=== PATIENT | female | born 1995 | race Native Hawaiian/Other Pacific Islander ===

== ENCOUNTER → 2017-05-03 | Outpatient (CLI) | payer OTHER ==
[~2017-05-03] MED LIST: CRUTCH4 USE; Cipro500 MG PO; IBUP600 PO; ORTHO TRI-CYCL1 EACH PO; Pyridium100 MG PO
[2017-05-04 11:57] LABS: Source VAGINAL
== END ==
LOC: LAB 11:55
PROVIDERS: Obstetrics & Gynecology
DX: Z01.419 Encounter for gynecological examination (general) (routine) without abnormal findings (principal)
CPT/HCPCS: G0123

== ENCOUNTER 2022-08-08 20:44 | Observation (INO) | payer OTHER ==
[~2022-08-08] VITALS: Ht 175.3 cm; Wt 135.9 kg
== END 2022-08-09 08:47 | disposition home or self-care (01) ==
LOC: OBS 20:44 → BC 20:47 → OBS 23:04 → BC 23:06
PROVIDERS: ADMIT Obstetrics & Gynecology
DX: Z03.71 Encounter for suspected problem with amniotic cavity and membrane ruled out (principal); Z3A.38 38 weeks gestation of pregnancy
CPT/HCPCS: 59025; 81003; 87210; G0378

== ENCOUNTER 2022-08-14 11:15 | Inpatient (IN) | payer OTHER ==
[~2022-08-14] VITALS: Ht 175.3 cm; Wt 133.0 kg
[2022-08-14] VITALS (30 sets, daily range): BP systolic 96–156; BP diastolic 53–95
[2022-08-14] MEDS ORDERED: ONDA4 PO (14:36)
[2022-08-14] MEDS ORDERED: PRENATAL TABLE1 EAC2 PO (14:36)
[2022-08-14 15:30] LABS: BASOPHILS ABSOLUTE AUTO 0.04 K/mm3 (0.00-0.23); BASOPHILS PERCENT AUTO 0 % (0-2); EOSINOPHILS ABSOLUTE AUTO 0.05 K/mm3 (0.00-0.68); EOSINOPHILS PERCENT AUTO 0 % (0-6); Hematocrit 36.5 % (33.0-51.0); IMMATURE GRAN ABSOLUTE AUTO 0.09 K/mm3 (0.00-0.10); IMMATURE GRAN PERCENT AUTO 1 % (0-1); LYMPHOCYTES ABSOLUTE AUTO 1.37 K/mm3 (0.84-5.20); LYMPHOCYTES PERCENT AUTO 7 % (21-46); MONOCYTES ABSOLUTE AUTO 0.95 K/mm3 (0.16-1.47); MONOCYTES PERCENT AUTO 5 % (4-13); Mean Corpuscular HGB 28.6 pg (26.0-34.0); Mean Corpuscular HGB Conc 32.9 g/dL (31.5-36.5); Mean Corpuscular Volume 87 fL (80-100); Mean Platelet Volume 10.3 fL (9.1-12.4); NEUTROPHILS ABSOLUTE AUTO 17.16 K/mm3 (1.96-9.15); NEUTROPHILS PERCENT AUTO 87 % (41-73); Platelet Count 262 K/mm3 (150-400); RDW Coefficient Variation 13.7 % (11.7-14.2); RDW Standard Deviation 42.9 fL (35.1-46.3); Red Blood Cell Count 4.19 M/mm3 (3.80-5.20); White Blood Cell Count 19.66 K/mm3 (4.00-11.30)
[2022-08-15] VITALS (10 sets, daily range): BP systolic 110–182; BP diastolic 56–73
[2022-08-15 05:30] LABS: BASOPHILS ABSOLUTE AUTO 0.03 K/mm3 (0.00-0.23); BASOPHILS PERCENT AUTO 0 % (0-2); EOSINOPHILS ABSOLUTE AUTO 0.02 K/mm3 (0.00-0.68); EOSINOPHILS PERCENT AUTO 0 % (0-6); Hematocrit 31.9 % (33.0-51.0); Hemoglobin 10.9 g/dL (11.5-16.0); IMMATURE GRAN ABSOLUTE AUTO 0.11 K/mm3 (0.00-0.10); IMMATURE GRAN PERCENT AUTO 1 % (0-1); LYMPHOCYTES ABSOLUTE AUTO 1.49 K/mm3 (0.84-5.20); LYMPHOCYTES PERCENT AUTO 8 % (21-46); MONOCYTES PERCENT AUTO 4 % (4-13); Mean Corpuscular HGB 29.5 pg (26.0-34.0); Mean Corpuscular HGB Conc 34.2 g/dL (31.5-36.5); Mean Corpuscular Volume 86 fL (80-100); Mean Platelet Volume 10.4 fL (9.1-12.4); NEUTROPHILS ABSOLUTE AUTO 17.34 K/mm3 (1.96-9.15); NEUTROPHILS PERCENT AUTO 88 % (41-73); Platelet Count 236 K/mm3 (150-400); RDW Coefficient Variation 13.7 % (11.7-14.2); RDW Standard Deviation 42.9 fL (35.1-46.3); Red Blood Cell Count 3.69 M/mm3 (3.80-5.20); White Blood Cell Count 19.79 K/mm3 (4.00-11.30)
--- NOTE | 2022-08-15 20:09 | NUR ---
RN ROUNDED AT START OF SHIFT, PTS ROOM IS DARK, PT IS SIDE LYING IN BED RESTING. NOT DISTURBED BY RN ENTERING ROOM. NB IS IN CRIB REASTING WELL, SWADDLED AND BACK TO SLEEP.
[2022-08-16 00:47] VITALS: BP 117/61
[2022-08-16 07:36] VITALS: BP 116/59
[2022-08-16 12:17] VITALS: BP 113/68
--- NOTE | 2022-08-16 13:40 | NUR ---
LEFT TEXT MESSAGE TO ASK WHEN MAKING ROUNDS AT 1150 PATIENT WANTS TO GO HOME, NO RESPONSE TO TEXT, 1340 CALLED CELL PHONE THE PHONE HAD BUSY SIGNAL 1340 CALLED OFFICE LEFT MESSAGE TO HAVE DR MONTEIRO CALL UNIT WHEN SHE RETURNS FROM LUNCH
[2022-08-16 13:59] VITALS: BP 130/83
== END 2022-08-16 14:15 | disposition home or self-care (01) | DRG 806 ==
LOC: OBS 11:15 → BC 11:15 → OBS 12:53 → BC 19:13
PROVIDERS: ADMIT Obstetrics & Gynecology
PROC: 10E0XZZ Delivery of Products of Conception, External Approach (ICD-10-PCS; principal; 2022-08-15)
PROC: 3E0R3BZ Introduction of Anesthetic Agent into Spinal Canal, Percutaneous Approach (ICD-10-PCS; 2022-08-15)
PROC: 00HU33Z Insertion of Infusion Device into Spinal Canal, Percutaneous Approach (ICD-10-PCS; 2022-08-15)
PROC: 10907ZC Drainage of Amniotic Fluid, Therapeutic from Products of Conception, Via Natural or Artificial Opening (ICD-10-PCS; 2022-08-15)
DX: O77.0 Labor and delivery complicated by meconium in amniotic fluid (principal); O99.324 Drug use complicating childbirth; Z37.0 Single live birth; O99.334 Smoking (tobacco) complicating childbirth; F17.210 Nicotine dependence, cigarettes, uncomplicated; F12.10 Cannabis abuse, uncomplicated; Z3A.39 39 weeks gestation of pregnancy; Z79.899 Other long term (current) drug therapy
CPT/HCPCS: 36415; 51702; 59025; 85025; 86850; 86900; 86901; 90471; 90707; A9270; J1885; J2210; J2405; J2590; J3010; J7120

== ENCOUNTER 2024-08-01 04:55 | Emergency (ER) | payer OTHER ==
[~2024-08-01] VITALS: Ht 175.3 cm; Wt 98.9 kg
[~2024-08-01 04:55] MED LIST changes: +ONDA4 PO; +PRENATAL TABLE1 EAC2 PO
[2024-08-01 05:48] LABS: CORONAVIRUS COVID-19 AG Negative (NEGATIVE); INFLUENZA A AG Negative (NEGATIVE); INFLUENZA B AG Negative (NEGATIVE)
[2024-08-01] MEDS ORDERED: AMOCLA875 PO (07:27)
[2024-08-01 07:35] VITALS: BP 125/83
== END 2024-08-01 07:39 | disposition home or self-care (01) ==
LOC: ER 04:55
PROVIDERS: Emergency Medicine
DX: O99.512 Diseases of the respiratory system complicating pregnancy, second trimester (principal); J32.9 Chronic sinusitis, unspecified; O99.891 Other specified diseases and conditions complicating pregnancy; R05.9 Cough, unspecified; Z3A.15 15 weeks gestation of pregnancy; Z87.891 Personal history of nicotine dependence; Z79.899 Other long term (current) drug therapy
CPT/HCPCS: 71045; 87428-QW; 93005; 93010; 99284-25

== ENCOUNTER 2025-01-11 21:01 | Inpatient (IN) | payer OTHER ==
[2025-01-11] VITALS (9 sets, daily range): BP systolic 91–128; BP diastolic 47–82
[~2025-01-11] VITALS: Ht 172.7 cm; Wt 112.7 kg
[~2025-01-11 21:01] MED LIST changes: +AMOCLA875 PO
[2025-01-11] MEDS ORDERED: ePHEDrine Sulfate 50 MG/ML 1ML Injection XX PRN (21:40)
[2025-01-11] MEDS ORDERED: FentaNYL Citrate 50 MCG/ML 2 ML Injection IV PRN (21:40)
[2025-01-11] MEDS ORDERED: Ondansetron HCl 2 MG / ML 2ML Vial IV PRN (21:40)
[2025-01-11] MEDS ORDERED: Carboprost Tromethamine 250 MCG/ML 1ML Amp IM PRN (21:40)
[2025-01-11] MEDS ORDERED: OXYTOCIN/RINGER'S LACTATE 500 ML IV PRN (21:40)
[2025-01-11] MEDS ORDERED: FentaNYL 2mcg/ml-Bup 0.1% Epd 250 ML EPI PRN (21:40)
[2025-01-11] MEDS ORDERED: Oxytocin 10 Unit / ML Vial IM PRN (21:40)
[2025-01-11] MEDS ORDERED: Tranexamic Acid 100 ML IV SCH (21:40)
[2025-01-11] MEDS ORDERED: Methylergonovine Maleate 0.2MG / ML 1ML Amp IM PRN ×2 (21:40→23:45)
[2025-01-11 21:47] LABS: BASOPHILS ABSOLUTE AUTO 0.05 K/mm3 (0.00-0.23); BASOPHILS PERCENT AUTO 0 % (0-2); EOSINOPHILS ABSOLUTE AUTO 0.18 K/mm3 (0.00-0.68); EOSINOPHILS PERCENT AUTO 1 % (0-6); Hematocrit 33.8 % (33.0-51.0); Hemoglobin 11.5 g/dL (11.5-16.0); IMMATURE GRAN ABSOLUTE AUTO 0.09 K/mm3 (0.00-0.10); IMMATURE GRAN PERCENT AUTO 1 % (0-1); LYMPHOCYTES ABSOLUTE AUTO 1.88 K/mm3 (0.84-5.20); LYMPHOCYTES PERCENT AUTO 10 % (21-46); MONOCYTES ABSOLUTE AUTO 1.35 K/mm3 (0.16-1.47); MONOCYTES PERCENT AUTO 7 % (4-13); Mean Corpuscular HGB Conc 34.0 g/dL (31.5-36.5); Mean Corpuscular Volume 85 fL (80-100); NEUTROPHILS ABSOLUTE AUTO 16.00 K/mm3 (1.96-9.15); NEUTROPHILS PERCENT AUTO 82 % (41-73); NRBC ABSOLUTE 0.00 K/mm3 (0.00-0.02); NRBC Auto 0.0 /100 WBC (0.0-0.2); Platelet Count 230 K/mm3 (150-400); RDW Coefficient Variation 13.5 % (11.7-14.2); RDW Standard Deviation 42.1 fL (35.1-46.3)
[2025-01-11] MEDS ORDERED: FentaNYL Citrate 50 MCG/ML 2 ML Injection ONE (22:56)
[2025-01-11] MEDS ORDERED: Witch Hazel/Glycerin PADS TOP PRN (23:40)
[2025-01-11] MEDS ORDERED: Ketorolac Tromethamine 30mg Vial IV PRN (23:45)
[2025-01-11] MEDS ORDERED: OXYTOCIN/RINGER'S LACTATE 500 ML IV SCH (23:50)
[2025-01-11] MEDS ORDERED: Benzocaine Topical Anesthetic Spray 60GM TOP PRN (23:50)
[2025-01-11] MEDS ORDERED: OxyCODONE 5 mg/Acetamin 325 mg TABLET PO PRN (23:50)
[2025-01-12] VITALS (12 sets, daily range): BP systolic 99–150; BP diastolic 51–77
--- NOTE | 2025-01-12 01:58 | NUR ---
ASSUMED PT CARE, REPORT FROM JAYANT Ramirez RN
[2025-01-12] MEDS ORDERED: Prenatal Vit/FE Fumarate/FA 1 Tab PO SCH (09:00)
--- NOTE | 2025-01-12 09:54 | NUR ---
0715: pt up to nursery. 0815: pt still in nursery, holding nb. denies pain. no complaints at this time.
--- NOTE | 2025-01-12 10:00 | NUR ---
B/P REASSESSED PRIOR TO PT R/T NURSERY TO VISIT NB. B/P UNCHANGED. PT DENIES H/A OR ANY VISUAL DISTURBANCES. DENIES EVER HAVING ISSUES WITH HER B/P. NEVER HAS TAKEN ANYTHING FOR B/P WITH ANY OF HER PREGNANCIES. REPORTED TO Jeri LANDRY CNM.
--- NOTE | 2025-01-12 12:13 | NUR ---
UP IN NURSERY WITH NB. UNAVAILABLE FOR VS AT THIS TIME
--- NOTE | 2025-01-12 13:32 | NUR ---
1130: IN NURSERY WITH NB. UNAVAILABLE FOR VS 1230: STILL IN NURSERY WITH NB. NO COMPLAINTS, DENIES PAIN 1330: PT SLEEPING IN ROOM. VS DONE.
[2025-01-13 02:45] VITALS: BP 100/53
[2025-01-13 06:12] VITALS: BP 121/68
[2025-01-13 07:58] VITALS: BP 126/77
--- NOTE | 2025-01-13 08:13 | NUR ---
PT C/O CRAMPING AFTER PUMPING. RX GIVEN. DISCUSSED BOARDER STATUS. INFORMATION SHEET GIVEN. NO QUESTIONS AT THIS TIME. PT ENCOURAGED TO HAVE HER OWN PAIN RX IN THE ROOM FROM HOME.
[2025-01-13] MEDS ORDERED: PRENATAL TABLE1 EAC2 PO (09:34)
--- NOTE | 2025-01-13 10:11 | NUR ---
1010: UP IN NURSERY HOLDING NB. DISCUSSED D/C INSTRUCTIONS AND PPFU PLAN. NO QUESTIONS OR CONCERNS. PT TO BORDER STATUS.
== END 2025-01-13 10:15 | disposition home or self-care (01) | DRG 807 ==
LOC: OBS 21:01 → BC 21:06 → OBS 21:24 → BC 21:29
PROVIDERS: Family Medicine; ADMIT Nurse Practitioner Obstetrics & Gynecology
PROC: 10E0XZZ Delivery of Products of Conception, External Approach (ICD-10-PCS; principal; 2025-01-11)
PROC: 10907ZC Drainage of Amniotic Fluid, Therapeutic from Products of Conception, Via Natural or Artificial Opening (ICD-10-PCS; 2025-01-11)
PROC: 4A1HXCZ Monitoring of Products of Conception, Cardiac Rate, External Approach (ICD-10-PCS; 2025-01-11)
DX: O99.324 Drug use complicating childbirth (principal); Z37.0 Single live birth; F12.90 Cannabis use, unspecified, uncomplicated; Z3A.39 39 weeks gestation of pregnancy; O77.0 Labor and delivery complicated by meconium in amniotic fluid
CPT/HCPCS: 36415; 85025; 86850; 86900; 86901; 99214; A9270; J2405; J7120